=== PATIENT | male | born 1970 | race Caucasian/White ===

== ENCOUNTER 2020-05-03 17:19 | Emergency (ER) | payer OTHER ==
[~2020-05-03] VITALS: Ht 182.9 cm; Wt 83.9 kg
[2020-05-03 21:07] LABS: ABSOLUTE NEUTROPHILS 7.1 thou/uL (1.4-8.2); BASOPHILS 0.6 % (0.0-2.0); EOSINOPHILS 0.8 % (0.0-3.0); HEMATOCRIT 56.4 % (42.0-52.0); HEMOGLOBIN 19.2 gm/dL (14.0-18.0); MCH 31.6 pg (26.0-34.0); MCV 92.8 fL (80.0-100.0); MONOCYTES 6.2 % (1.0-8.0); PLATELET COUNT 218 thou/uL (150-400); POLYS 75.4 % (36.0-66.0); RBC 6.08 mil/uL (4.50-6.00); RDW 13.8 % (10.5-14.5); WBC 9.5 thou/uL (4.0-11.0)
[2020-05-03 21:16] LABS: ANION GAP 8 mmol/L (7-16); BUN 14 mg/dL (7-18); CALCIUM 10.5 mg/dL (8.5-10.1); CHLORIDE 105 mmol/L (98-107); CO2 28 mmol/L (21-32); GLUCOSE 85 mg/dL (74-106); POTASSIUM 3.7 mmol/L (3.5-5.1); SODIUM 141 mmol/L (136-145)
[2020-05-03 21:26] LABS: ALBUMIN 4.3 g/dL (3.4-5.0); LIPASE 91 U/L (73-393); SGOT 20 U/L (15-37); SGPT 31 U/L (30-65); TOTAL BILIRUBIN 1.4 mg/dL (0.2-1.0); TOTAL PROTEIN 7.3 g/dL (6.4-8.2); TROPONIN-I <0.06 ng/mL (<0.06)
[2020-05-03 23:23] VITALS: BP 135/101
--- NOTE | 2020-05-04 07:36 | EKG ---
[facility] [place] [address] ELECTROCARDIOGRAM REPORT Name: BERNARDINO PERKINS Room #: DEP 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
== END 2020-05-03 23:24 | disposition home or self-care (01) ==
LOC: ER 17:19
PROVIDERS: Physician Assistant
DX: R42 Dizziness and giddiness (principal); R20.2 Paresthesia of skin; R71.8 Other abnormality of red blood cells; R10.13 Epigastric pain; I10 Essential (primary) hypertension